=== PATIENT | female | born 1945 | race Hispanic/Latino ===

== ENCOUNTER → 2017-12-03 | Outpatient (CLI) | payer MEDICARE | END | disposition home or self-care (01) | LOC: RAH 09:45 | PROVIDERS: ATTEND Family Medicine | DX: G31.9 Degenerative disease of nervous system, unspecified (principal); I73.9 Peripheral vascular disease, unspecified; R42 Dizziness and giddiness | CPT/HCPCS: 70544; 70551 ==

== ENCOUNTER → 2018-05-13 | Outpatient (CLI) | payer MEDICARE | END | disposition home or self-care (01) | LOC: RAH 10:58 | PROVIDERS: ATTEND Internal Medicine Endocrinology, Diabetes & Metabolism | DX: E04.2 Nontoxic multinodular goiter (principal) | CPT/HCPCS: 76536 ==

== ENCOUNTER 2018-09-05 21:26 | Emergency (ER) | payer MEDICARE ==
[2018-09-05 22:15] LABS: BASOPHILS % (AUTO) 0.4 % (0.0-5.0); EOSINOPHILS % (AUTO) 0.7 % (0.0-8.0); HEMATOCRIT 36.2 % (36-48); LYMPHOCYTES % (AUTO) 29.8 % (21.0-51.0); MEAN CORPUSCULAR HEMOGLOBIN 30.4 pg (27.0-33.0); MEAN CORPUSCULAR VOLUME 89.4 fL (79-99); MONOCYTES % (AUTO) 8.9 % (3.0-13.0); NEUTROPHILS % (AUTO) 60.2 % (40.0-77.0); PLATELET COUNT (AUTO) 290 K/uL (130-400); RED BLOOD CELL COUNT(AUTO) 4.05 MIL/uL (4.00-5.50); RED CELL DISTRIBUTION WIDTH 13.5 % (11.0-15.5); WHITE BLOOD COUNT (AUTO) 9.8 K/uL (4.8-10.8)
[2018-09-05 22:18] LABS: CREATININE 0.7 mg/dL (0.5-1.5); POTASSIUM 3.4 mmol/L (3.5-5.1)
== END 2018-09-06 00:48 | disposition home or self-care (01) ==
LOC: EDH 21:26
DX: S80.212A Abrasion, left knee, initial encounter (principal); M25.532 Pain in left wrist; R42 Dizziness and giddiness; R11.0 Nausea; E78.5 Hyperlipidemia, unspecified; K21.9 Gastro-esophageal reflux disease without esophagitis; E03.9 Hypothyroidism, unspecified; M81.0 Age-related osteoporosis without current pathological fracture; M06.9 Rheumatoid arthritis, unspecified; Z90.710 Acquired absence of both cervix and uterus; Z90.49 Acquired absence of other specified parts of digestive tract; Z79.899 Other long term (current) drug therapy; W18.39XA Other fall on same level, initial encounter; Y93.K1 Activity, walking an animal; Y92.89 Other specified places as the place of occurrence of the external cause; Y99.8 Other external cause status
CPT/HCPCS: 29125; 36415; 70450; 73130; 80048; 85025; 93005

== ENCOUNTER → 2018-09-10 | Outpatient (CLI) | payer MEDICARE | END | disposition home or self-care (01) | LOC: RAH 11:51 | PROVIDERS: ATTEND Family Medicine | DX: M19.042 Primary osteoarthritis, left hand (principal); M19.032 Primary osteoarthritis, left wrist | CPT/HCPCS: 73110; 73130 ==

== ENCOUNTER → 2018-10-01 | Outpatient (CLI) | payer MEDICARE | END | disposition home or self-care (01) | LOC: RAH 09:38 | PROVIDERS: ATTEND Family Medicine | DX: K21.9 Gastro-esophageal reflux disease without esophagitis (principal); M06.9 Rheumatoid arthritis, unspecified | CPT/HCPCS: 74240 ==

== ENCOUNTER 2019-03-16 09:44 | Emergency (ER) | payer MEDICARE ==
[2019-03-16 10:03] LABS: BASOPHILS % (AUTO) 1.4 % (0.0-5.0); EOSINOPHILS % (AUTO) 1.4 % (0.0-8.0); HEMATOCRIT 36.4 % (36-48); LYMPHOCYTES % (AUTO) 27.7 % (21.0-51.0); MEAN CORPUSCULAR HEMOGLOBIN 31.2 pg (27.0-33.0); MEAN CORPUSCULAR HGB CONC 35.5 g/dL (32.0-36.0); MONOCYTES % (AUTO) 9.7 % (3.0-13.0); NEUTROPHILS % (AUTO) 59.8 % (40.0-77.0); PLATELET COUNT (AUTO) 252 K/uL (130-400); RED BLOOD CELL COUNT(AUTO) 4.14 MIL/uL (4.00-5.50); RED CELL DISTRIBUTION WIDTH 13.3 % (11.0-15.5); WHITE BLOOD COUNT (AUTO) 6.5 K/uL (4.8-10.8)
[2019-03-16 10:15] LABS: CREATININE 0.7 mg/dL (0.5-1.5); POTASSIUM 3.6 mmol/L (3.5-5.1)
[2019-03-16 10:19] LABS: ALBUMIN 3.7 g/dL (3.5-5.0); BILIRUBIN,TOTAL 0.5 mg/dL (0.2-1.0); TOTAL PROTEIN, SERUM 7.6 g/dL (6.0-8.3)
== END 2019-03-16 11:06 | disposition home or self-care (01) ==
LOC: EDH 09:44
DX: I10 Essential (primary) hypertension (principal); R55 Syncope and collapse; R42 Dizziness and giddiness; K21.9 Gastro-esophageal reflux disease without esophagitis; E03.9 Hypothyroidism, unspecified; E78.5 Hyperlipidemia, unspecified; M81.0 Age-related osteoporosis without current pathological fracture; M06.9 Rheumatoid arthritis, unspecified; Z90.710 Acquired absence of both cervix and uterus; Z90.49 Acquired absence of other specified parts of digestive tract
CPT/HCPCS: 36415; 80053; 84484; 85025; 93005

== ENCOUNTER → 2019-03-16 | Outpatient (CLI) | payer MEDICARE | END | disposition home or self-care (01) | LOC: RAH 08:27 | PROVIDERS: ATTEND Family Medicine | DX: Z12.31 Encounter for screening mammogram for malignant neoplasm of breast (principal); E03.9 Hypothyroidism, unspecified; E04.2 Nontoxic multinodular goiter | CPT/HCPCS: 76536; 77067; 82948 ==

== ENCOUNTER → 2021-11-08 | Outpatient (CLI) | payer MEDICARE ==
[2021-11-08] MEDS: REGADENOSON 0.4 MG/5 ML PF SYG IVP ONE (12:29)
== END | disposition home or self-care (01) ==
LOC: SHCH 07:43
PROVIDERS: ATTEND Internal Medicine Cardiovascular Disease
DX: I35.1 Nonrheumatic aortic (valve) insufficiency (principal); I51.7 Cardiomegaly; R06.02 Shortness of breath
CPT/HCPCS: 78452; 93017; 93306; 93356; 96374; A9500 ×2; J2785

== ENCOUNTER 2022-02-07 06:52 | Emergency (ER) | payer MEDICARE, OTHER ==
[~2022-02-07] VITALS: Ht 142.2 cm; Wt 61.2 kg
[2022-02-07 07:18] LABS: APPEARANCE,URINE SL CLOUDY (CLEAR); BILIRUBIN,URINE NEGATIVE (NEGATIVE); COLOR,URINE YELLOW (YELLOW); GLUCOSE, URINE (UA) NEGATIVE (NEGATIVE); KETONES,URINE NEGATIVE (NEGATIVE); LEUKOCYTE ESTERASE ,URINE SMALL (NEGATIVE); NITRATE,URINE NEGATIVE (NEGATIVE); OCCULT BLOOD,URINE LARGE (NEGATIVE); PROTEIN,URINE NEGATIVE (NEGATIVE); UROBILINOGEN,URINE 0.2 mg/dL (0.2-1.0)
[2022-02-07] MEDS ORDERED: ACETAMINOPHEN 500 MG TABLET PO ONE (07:30)
[2022-02-07 07:36] LABS: BASOPHILS % (AUTO) 0.1 % (0.0-5.0); EOSINOPHILS % (AUTO) 0.7 % (0.0-8.0); HEMATOCRIT 35.6 % (36-48); LYMPHOCYTES % (AUTO) 18.6 % (21.0-51.0); MEAN CORPUSCULAR HEMOGLOBIN 29.2 pg (27.0-33.0); MEAN CORPUSCULAR VOLUME 91.3 fL (79-99); MONOCYTES % (AUTO) 7.1 % (3.0-13.0); NEUTROPHILS % (AUTO) 73.2 % (40.0-77.0); PLATELET COUNT (AUTO) 274 K/uL (130-400); RED CELL DISTRIBUTION WIDTH 12.8 % (11.0-15.5)
[2022-02-07 07:44] LABS: CREATININE 0.7 mg/dL (0.5-1.5); POTASSIUM 4.6 mmol/L (3.5-5.1)
[2022-02-07 07:51] LABS: ALBUMIN 3.8 g/dL (3.5-5.0); BILIRUBIN,TOTAL 0.3 mg/dL (0.2-1.0); TOTAL PROTEIN, SERUM 7.6 g/dL (6.0-8.3)
[2022-02-07 08:05] LABS: BACTERIA,URINE Few /HPF (None Seen)
[2022-02-07] MEDS ORDERED: 0.9%NACL 1000ML 1,000 ML IV ONE (08:30)
[2022-02-07] MEDS ORDERED: IOHEXOL-350 75 ML VIAL IV ONE (09:53)
[2022-02-07] MEDS ORDERED: CEPH500B PO (10:59)
[2022-02-07] MEDS ORDERED: TAMS-1 PO (10:59)
[2022-02-07] MEDS ORDERED: KETO10TA2 PO (10:59)
[2022-02-07 11:37] VITALS: BP 135/74
== END 2022-02-07 11:39 | disposition home or self-care (01) ==
LOC: EDH 06:52
DX: N20.0 Calculus of kidney (principal); I10 Essential (primary) hypertension; Z90.49 Acquired absence of other specified parts of digestive tract; Z90.710 Acquired absence of both cervix and uterus
CPT/HCPCS: 36415; 74177; 80053; 81001; 85025; 99285; Q9967

== ENCOUNTER 2023-03-03 11:57 | Emergency (ER) | payer OTHER ==
[~2023-03-03] VITALS: Ht 142.2 cm; Wt 59.0 kg
[~2023-03-03 11:57] MED LIST: CEPH500B PO; KETO10TA2 PO; TAMS-1 PO
[2023-03-03 12:37] LABS: BASOPHILS % (AUTO) 0.3 % (0.0-5.0); EOSINOPHILS % (AUTO) 0.5 % (0.0-8.0); LYMPHOCYTES % (AUTO) 12.9 % (21.0-51.0); MEAN CORPUSCULAR HEMOGLOBIN 29.5 pg (27.0-33.0); MEAN CORPUSCULAR HGB CONC 32.2 g/dL (32.0-36.0); MEAN CORPUSCULAR VOLUME 91.6 fL (79-99); MONOCYTES % (AUTO) 7.8 % (3.0-13.0); NEUTROPHILS % (AUTO) 78.3 % (40.0-77.0); PLATELET COUNT (AUTO) 283 K/uL (130-400); RED BLOOD CELL COUNT(AUTO) 4.04 MIL/uL (4.00-5.50); RED CELL DISTRIBUTION WIDTH 12.7 % (11.0-15.5); WHITE BLOOD COUNT (AUTO) 9.9 K/uL (4.8-10.8)
[2023-03-03 12:55] LABS: APPEARANCE,URINE CLOUDY (CLEAR); BILIRUBIN,URINE NEGATIVE (NEGATIVE); COLOR,URINE YELLOW (YELLOW); GLUCOSE, URINE (UA) NEGATIVE (NEGATIVE); KETONES,URINE NEGATIVE (NEGATIVE); LEUKOCYTE ESTERASE ,URINE 25 Leu/uL (NEGATIVE); NITRATE,URINE NEGATIVE (NEGATIVE); OCCULT BLOOD,URINE NEGATIVE (NEGATIVE); PROTEIN,URINE 20 mg/dL (NEGATIVE); UROBILINOGEN,URINE 0.2 mg/dL (0.2-1.0)
[2023-03-03 13:00] LABS: BACTERIA,URINE RARE /HPF (None Seen); MUCUS,URINE RARE LPF (None Seen); SQUAMOUS EPITHELIAL CELL,UR MOD /HPF (0-2)
[2023-03-03 13:04] LABS: ALBUMIN 3.6 g/dL (3.5-5.0); CREATININE 0.9 mg/dL (0.5-1.5); POTASSIUM 4.4 mmol/L (3.5-5.1); TOTAL PROTEIN, SERUM 7.4 g/dL (6.0-8.3)
[2023-03-03] MEDS ORDERED: 0.9%NACL 1000ML 1,000 ML IV ONE (13:30)
[2023-03-03 15:37] VITALS: BP 155/58
== END 2023-03-03 16:06 | disposition home or self-care (01) ==
LOC: EDH 11:57
DX: R55 Syncope and collapse (principal); R00.1 Bradycardia, unspecified; I10 Essential (primary) hypertension; E78.00 Pure hypercholesterolemia, unspecified; E03.9 Hypothyroidism, unspecified; K21.9 Gastro-esophageal reflux disease without esophagitis; Z90.710 Acquired absence of both cervix and uterus
CPT/HCPCS: 99285; 96360; 71045; 84484; 80053; 83690; 85025; 81001; 36415; 93005; J7030

== ENCOUNTER → 2023-06-04 | Outpatient (CLI) | payer OTHER ==
[~2023-06-04] MED LIST changes: +IOHEXOL 350 MG/ML 100ML INFUS..BTL IV ONE
== END | disposition home or self-care (01) ==
LOC: RAH 13:15
PROVIDERS: ATTEND Internal Medicine Cardiovascular Disease
DX: I51.7 Cardiomegaly (principal); R07.9 Chest pain, unspecified; R55 Syncope and collapse; M47.815 Spondylosis without myelopathy or radiculopathy, thoracolumbar region
CPT/HCPCS: 75574; Q9967

== ENCOUNTER → 2023-07-09 | Outpatient (CLI) | payer OTHER ==
[~2023-07-09] MED LIST changes: -IOHEXOL 350 MG/ML 100ML INFUS..BTL IV ONE
== END | disposition home or self-care (01) ==
LOC: RAH 08:07
PROVIDERS: ATTEND Internal Medicine Cardiovascular Disease
DX: Z13.6 Encounter for screening for cardiovascular disorders (principal)
CPT/HCPCS: 75571

== ENCOUNTER → 2023-08-18 | Outpatient (CLI) | payer OTHER ==
[~2023-08-18] MED LIST changes: +AEC81 PO; +ATOR10TA69 PO; +BIOT5000 PO; +LEVO50CA4 PO; +LOSA25TA41 PO; +OMEP-420 PO
== END | disposition home or self-care (01) ==
LOC: SHCH 10:54
PROVIDERS: ATTEND Internal Medicine Cardiovascular Disease
DX: N20.0 Calculus of kidney (principal); I10 Essential (primary) hypertension; R55 Syncope and collapse
CPT/HCPCS: 93975

== ENCOUNTER → 2023-12-23 | Outpatient (CLI) | payer OTHER ==
[~2023-12-23] MED LIST changes: -CEPH500B PO; -KETO10TA2 PO; -TAMS-1 PO
== END | disposition home or self-care (01) ==
LOC: SHCH 09:34
PROVIDERS: ATTEND Internal Medicine Cardiovascular Disease
DX: I35.8 Other nonrheumatic aortic valve disorders (principal); I48.0 Paroxysmal atrial fibrillation; I51.7 Cardiomegaly; E78.5 Hyperlipidemia, unspecified
CPT/HCPCS: 93306

== ENCOUNTER 2024-06-02 19:01 | Emergency (ER) | payer OTHER ==
[2024-06-02] MEDS: 0.9%NACL 1000ML 1,000 ML IV ONE (19:59)
[2024-06-02 20:17] LABS: BASOPHILS # (AUTO) 0.02 K/uL (0.00-0.20); BASOPHILS % (AUTO) 0.3 % (0.0-5.0); EOSINOPHILS # (AUTO) 0.09 K/uL (0.00-0.70); EOSINOPHILS % (AUTO) 1.2 % (0.0-8.0); HEMATOCRIT 33.4 % (36-48); IMMATURE GRANULOCYTE ABSOLUTE 0.03 K/uL (0-1); LYMPHOCYTES # (AUTO) 1.9 K/uL (1.0-4.8); LYMPHOCYTES % (AUTO) 24.4 % (21.0-51.0); MEAN CORPUSCULAR HEMOGLOBIN 30.7 pg (27.0-33.0); MEAN CORPUSCULAR HGB CONC 33.2 g/dL (32.0-36.0); MEAN CORPUSCULAR VOLUME 92.5 fL (79-99); MONOCYTES # (AUTO) 0.7 K/uL (0.1-1.0); NEUTROPHILS % (AUTO) 64.7 % (40.0-77.0); PLATELET COUNT (AUTO) 265 K/uL (130-400); RED BLOOD CELL COUNT(AUTO) 3.61 MIL/uL (4.00-5.50); RED CELL DISTRIBUTION WIDTH 12.4 % (11.0-15.5); WHITE BLOOD COUNT (AUTO) 7.7 K/uL (4.8-10.8)
[2024-06-02 20:26] LABS: CREATININE 0.8 mg/dL (0.5-1.0)
[2024-06-02 20:30] LABS: ALBUMIN 3.6 g/dL (3.5-5.0); BILIRUBIN,TOTAL 0.3 mg/dL (0.2-1.0); TOTAL PROTEIN, SERUM 7.4 g/dL (6.0-8.3)
[2024-06-02 21:36] VITALS: BP 181/81; PULSE 58; RESP 16; O2SAT 100
== END 2024-06-02 22:31 | disposition home or self-care (01) ==
LOC: EDH 19:01
DX: R20.2 Paresthesia of skin (principal); R07.89 Other chest pain; I10 Essential (primary) hypertension; E03.9 Hypothyroidism, unspecified; E78.00 Pure hypercholesterolemia, unspecified; K21.9 Gastro-esophageal reflux disease without esophagitis; Z90.710 Acquired absence of both cervix and uterus; Z90.49 Acquired absence of other specified parts of digestive tract; Z79.82 Long term (current) use of aspirin; Z79.899 Other long term (current) drug therapy
CPT/HCPCS: 99285; 70450; 71045; 84484; 80053; 85025; 36415; 73562; 93005; J7030

== ENCOUNTER 2024-07-18 10:28 | Day surgery (SDC) | payer OTHER ==
[2024-07-15 10:42] VITALS: PULSE 48; RESP 18
[2024-07-15 10:43] LABS: BASOPHILS # (AUTO) 0.03 K/uL (0.00-0.20); BASOPHILS % (AUTO) 0.4 % (0.0-5.0); EOSINOPHILS # (AUTO) 0.07 K/uL (0.00-0.70); HEMATOCRIT 33.8 % (36-48); IMMATURE GRANULOCYTE ABSOLUTE 0.02 K/uL (0-1); LYMPHOCYTES # (AUTO) 1.5 K/uL (1.0-4.8); LYMPHOCYTES % (AUTO) 22.4 % (21.0-51.0); MEAN CORPUSCULAR HEMOGLOBIN 30.4 pg (27.0-33.0); MEAN CORPUSCULAR HGB CONC 33.1 g/dL (32.0-36.0); MEAN CORPUSCULAR VOLUME 91.8 fL (79-99); MONOCYTES # (AUTO) 0.7 K/uL (0.1-1.0); MONOCYTES % (AUTO) 10.6 % (3.0-13.0); NEUTROPHILS # (AUTO) 4.4 K/uL (1.8-7.7); NEUTROPHILS % (AUTO) 65.3 % (40.0-77.0); PLATELET COUNT (AUTO) 271 K/uL (130-400); RED BLOOD CELL COUNT(AUTO) 3.68 MIL/uL (4.00-5.50); RED CELL DISTRIBUTION WIDTH 12.6 % (11.0-15.5); WHITE BLOOD COUNT (AUTO) 6.7 K/uL (4.8-10.8)
[2024-07-15 11:11] LABS: CREATININE 0.8 mg/dL (0.5-1.0); POTASSIUM 4.6 mmol/L (3.5-5.1)
[2024-07-15 11:43] LABS: INR 1.03 (0.85-1.15); PROTHROMBIN TIME 11.1 SEC (9.6-11.6)
[2024-07-15 11:44] LABS: PARTIAL THROMBOPLASTIN TIME 29.4 SEC (26.3-35.5)
[2024-07-18] VITALS (12 sets, daily range): BP systolic 139–172; BP diastolic 43–68; PULSE 53–60; RESP 11–17
[~2024-07-18] VITALS: Ht 149.9 cm; Wt 63.9 kg
[~2024-07-18 10:28] MED LIST changes: -AEC81 PO; +APIX5TAB PO
[2024-07-18] MEDS ORDERED: LIDOCAINE HCL 1% MDV 50ML VIAL ONE (13:50)
[2024-07-18] MEDS ORDERED: IOHEXOL-350 50ML VIAL IV ONE (13:50)
[2024-07-18] MEDS ORDERED: ceFAZolin SODIUM 1 GM VIAL ONE ×2 (13:50→14:25)
[2024-07-18] MEDS ORDERED: BUPIvacaine/PF 0.25% 30ML VIAL IJ ONE (13:50)
[2024-07-18] MEDS ORDERED: MIDAZOLAM HCL 1 MG/ML 2ML VIAL ONE ×2 (14:21→14:34)
[2024-07-18] MEDS ORDERED: MEPERIDINE-PF 25 MG/ML SYG ONE ×2 (14:21→14:34)
[2024-07-18] MEDS ORDERED: ONDANSETRON 4MG INJ IV PRN (15:30)
[2024-07-18] MEDS ORDERED: acetaMINOPHEN WITH coDEINE 1 TAB TAB PO PRN ×2 (15:30)
[2024-07-18] MEDS: ceFAZolin SODIUM 1 GM VIAL IVPB ONE (19:52)
== END 2024-07-18 20:52 | disposition home or self-care (01) ==
LOC: DAH 10:28
PROVIDERS: ATTEND Internal Medicine Cardiovascular Disease
DX: I49.5 Sick sinus syndrome (principal); M19.90 Unspecified osteoarthritis, unspecified site; I48.91 Unspecified atrial fibrillation; E78.5 Hyperlipidemia, unspecified; E03.9 Hypothyroidism, unspecified; Z90.49 Acquired absence of other specified parts of digestive tract; Z90.710 Acquired absence of both cervix and uterus; Z79.01 Long term (current) use of anticoagulants; Z79.899 Other long term (current) drug therapy; Z80.0 Family history of malignant neoplasm of digestive organs; Z98.890 Other specified postprocedural states
CPT/HCPCS: 80048; 85025; 85610; 85730; 36415; 93005; 33208; 71045; C1769; C1785; C1898 ×2; C1894; J0690 ×3; J0665; J2250 ×2; J2175 ×2; J3490; Q9967; A4215; A4222; A4221; A4663; A4216; A4606; A4223 ×3; 99156; 99157

== ENCOUNTER → 2024-12-17 | Outpatient (CLI) | payer OTHER ==
--- NOTE | 2024-12-21 07:20 | HMCSR ---
APPROVED REPORT EXAM: Two-dimensional and M-mode echocardiogram with Doppler and color Doppler. INDICATION ICD: I25.10 Atherosclerotic heart disease of [place] coronary artery without angina pectoris 2D Dimensions RVDd3.3 cmLVEF(%)60.6 (>50%)LVED Vol(simp.)84.0 mL IVSd1.1 (0.7-1.1cm)FS(%)32 %LVES Vol(simp.)33.0 mL LVDd4.6 (3.8-5.6cm)Ao Root(2D)3.0 (2.0-3.7cm)LVEF(%, simp.)61 % PWd1.1 (0.7-1.1cm)LVOT diam1.9 (1.8-2.4cm)LA ESV INDEX (BP)41.47 mL/m2 LVDs3.1 (2.5-4.0cm)IVC diam1.8 cm Aortic Valve AoV Vmax1.6 m/Cynthia Peak GR10.3 mmHgLVOT Vmax1.0 m/s AoV VTI0.4 mAo Mean GR5.3 mmHgLVOT VTI0.28 m CARLOS (VMAX)1.8 cm2Al P1/2T618 msAVA (VTI) 1.8 cm2 Mitral Valve MV E Vmax71.6 cm/sDECEL Mvhe610 ms MV A Mzri678.2 cm/sP 1/2 T64 ms E/A ratio0.7MVA (PHT)3.4 cm2 MR Max PG40 mmHg TDI E/E' Riqcua04.3E/E' Lateral9.8 Pulmonary Valve PV Vmax0.8 m/sPV VTI0.22 mPV Mean GR1 mmHg PV Peak GR2.7 mmHgPI End Jennifer. Varinder 1.0 cm/s Tricuspid Valve TR Vmax2.3 m/sRAP (EST) 8 rnLdNWXF60.4 mmHg TR Peak GR20.4 mmHg Left Ventricle Left ventricular cavity size is normal. There is normal LV segmental wall motion. There is borderline to mild concentric left ventricular hypertrophy. LVEF is 60-65%. No left ventricle thrombus noted on this study. Grade 1 diastolic dysfunction Right Ventricle The right ventricle is normal size. The right ventricular systolic function is normal. Atria The left atrium is mildly to moderately dilated. The right atrium is mildly dilated. Aortic Valve Aortic valve may be functionally bicuspid. Aortic valve leaflets are sclerotic but open well. Mild ao rtic regurgitation. There is no aortic valvular stenosis. Mitral Valve Mitral valve leaflets are mildly sclerotic but open well. Mitral regurgitation is trace. There is no mitral valve stenosis. Tricuspid Valve The tricuspid valve leaflets appear normal. There is trace tricuspid regurgitation. Pulmonic Valve Pulmonic valve is not well visualized. There is mild valvular regurgitation. Great Vessels The aortic root is normal in size. IVC is dilated and collapses >50% with inspiration. Pericardium No pericardial effusion. Conclusion Left ventricular cavity size is normal. There is borderline to mild concentric left ventricular hypertrophy. LVEF is 60-65%. Grade 1 diastolic dysfunction The right ventricle is normal size. The left atrium is mildly to moderately dilated. The right atrium is mildly dilated. Aortic valve may be functionally bicuspid. Aortic valve leaflets are sclerotic but open well. Mild aortic regurgitation. Mitral valve leaflets are mildly sclerotic but open well. Mitral regurgitation is trace. There is trace tricuspid regurgitation. There is mild valvular regurgitation. The aortic root is normal in size. IVC is dilated and collapses >50% with inspiration. No pericardial effusion.
== END | disposition home or self-care (01) ==
LOC: SHCH 07:59
PROVIDERS: ATTEND Internal Medicine Cardiovascular Disease
DX: I08.8 Other rheumatic multiple valve diseases (principal); R06.00 Dyspnea, unspecified; I25.10 Atherosclerotic heart disease of native coronary artery without angina pectoris
CPT/HCPCS: 93306

== ENCOUNTER → 2024-12-29 | Outpatient (CLI) | payer OTHER ==
[2024-12-29] MEDS: REGADENOSON 0.4 MG/5 ML PF SYG IVP ONE (13:14)
--- NOTE | 2025-01-02 10:40 | HMCSR ---
APPROVED REPORT Height: 5 ft 6in Weight: 142 lbs TEST INDICATIONS CAD The imaging protocol used to acquire images was Rest Tc-99m/stress Tc-99m 1 day Consent: The procedure was explained and understood by the patient. Informerd consent was witnessed Cecilia CONRAD RN First, low dose rest was performed then high dose stress. RESTING DATA: The resting ekg shows: NSR Rest SPECT myocardial perfusion imaging was performed in supine position 63 minutes following the int ravenous injection of 12.0 mCi of Tc-99 Sestamibi. Time of rest injection: 09:27: Date: 12/29/2024 Time of rest imagin:30: Date: 12/29/2024 PHARMACOLOGIC STRESS: Pharmacologic stress test was performed by injecting regadenoson 0.4 mg IV push followed by the intra venous injection of 32.0 mCi of Tc-99 Sestamibi. Time of stress injection: 10:55: Date: 12/29/2024 Time of stress imagin:12: Date: 12/29/2024 Heart Rate at time of stress injection: 61 bpm. Gated Stress SPECT was performed 77 minutes after stress injection. The images were gated to evaluate regional wall motion and calculate left ventricular ejection fracti on. STRESS DETAILS Reason for Termination: Infusion complete Stress Symptoms: No chest pain or symptoms Max HR Achieved: 80 bpm % of APMHR Achieved: 57 Max Blood Pressure: 145/55 mmHg Stress ECG: NSR LEFT VENTRICLE Size: The left ventricular size is normal. Systolic Function:The left ventricular systolic function is normal. Wall Motion: No regional wall motion abnormalities noted. The left ventricular ejection fraction was calculated to be 73%.TID = . LV PERFUSION The rest and stress images show normal perfusion. Conclusion The left ventricular size is normal. The left ventricular systolic function is normal. No regional wall motion abnormalities noted. The rest and stress images show normal perfusion. The left ventricular ejection fraction was calculated to be 73%.
== END | disposition home or self-care (01) ==
LOC: SHCH 09:06
PROVIDERS: ATTEND Internal Medicine Cardiovascular Disease
DX: I25.10 Atherosclerotic heart disease of native coronary artery without angina pectoris (principal)
CPT/HCPCS: 78452; 93017; J2785; A9500 ×2

== ENCOUNTER 2025-10-06 07:32 | Day surgery (SDC) | payer OTHER ==
[2025-10-04 11:30] LABS: IMMATURE GRANULOCYTE ABSOLUTE 0.02 K/uL (0-1); NUCLEATED RED BLOOD CELLS 0.0 % (0.0-0.19); PLATELET COUNT (AUTO) 277 K/uL (130-400); RED BLOOD CELL COUNT(AUTO) 3.85 MIL/uL (4.00-5.50); RED CELL DISTRIBUTION WIDTH 12.5 % (11.0-15.5); WHITE BLOOD COUNT (AUTO) 6.7 K/uL (4.8-10.8)
[2025-10-04 11:39] LABS: CREATININE 0.7 mg/dL (0.5-1.0); GLOMERULAR FILTR. RATE CALC 87.0 mL/min (>90); GLUCOSE,RANDOM 100.0 mg/dL (70-105); SODIUM SERUM 142.0 mmol/L (136-145); UREA NITROGEN, BLOOD 11.0 mg/dL (7-18)
--- NOTE | 2025-10-04 11:40 | EKG ---
[facility] Test Date: 2025-10-04 Test Time: 11:53:21 Pat Name: PENNY JACKSON Department: [facility] Room: Gender: F Rf Engineer: [id number] : 1945 Requested By: Mei LEE Order Number: [id number] Reading MD: Anum Childers Measurements Intervals [place] Rate: 63 P: 0 WI: 213 QRS: -21 QRSD: 89 T: -8 QT: 413 QTc: 424 Interpretive Statements Atrial-paced complexes Borderline prolonged WI interval Borderline T abnormalities, diffuse leads Compared to ECG 07/15/2024 10:28:15 Sinus bradycardia no longer present T-wave abnormality still present Electronically Signed On 10-05-2025 12:32:42 EDUCATION DEPARTMENT REGISTRAR by Anum Childers Please click the below link to view image of tracing.
[2025-10-04 11:43] VITALS: BP 156/71; PULSE 78; RESP 16; TEMP 97.3
[2025-10-04 11:45] LABS: INR 0.99 (0.85-1.15)
[~2025-10-06] VITALS: Ht 149.9 cm; Wt 61.6 kg
[~2025-10-06 07:32] MED LIST changes: +AEC81 PO; -ATOR10TA69 PO; +ATOR20TA65 PO; -LEVO50CA4 PO; +LEVO50CA5 PO
[2025-10-06 07:36] VITALS: BP 155/83; PULSE 88; RESP 16; TEMP 97.3
[2025-10-06] MEDS: 0.9%NACL 1000ML 1,000 ML IV SCH (08:07)
[2025-10-06] MEDS ORDERED: LIDOCAINE HCL 400MG/20ML VIAL ONE (09:19)
[2025-10-06] MEDS ORDERED: LIDOCAINE HCL 1% MDV 50ML VIAL ONE (09:20)
[2025-10-06] MEDS ORDERED: MIDAZOLAM HCL 1 MG/ML 2ML VIAL ONE ×2 (09:36→09:49)
[2025-10-06] MEDS ORDERED: BACITRACIN 1 EACH PACKET TP ONE (10:04)
[2025-10-06 10:26] VITALS: BP 159/65; PULSE 62; RESP 11; TEMP 97.6
--- NOTE | 2025-10-06 10:26 | NUR ---
DRESSING MIDDLE CHEST. 4X4 TEGADERM AND 4X4 NON ADHERENT STERILE DRESSING TO CHEST. NO ACTIVE BLEEDING OR DRAINAGE NOTED. NO REDNESS OR SWELLING NOTED. DRESSING SOFT TO TOUCH.
[2025-10-06 10:41] VITALS: BP 147/52; PULSE 60; RESP 12
--- NOTE | 2025-10-06 10:41 | NUR ---
DRESSING DRESSING TO MIDDLE CHEST. 4X4 STERILE TEGADERM AND 4X4 STERILE NON ADHERENT PAD. NO ACTIVE BLEEDING OR DRAINAGE NOTED. NO REDNESS OR SWELLING NOTED. DRESSING SOFT TO TOUCH.
[2025-10-06 10:56] VITALS: BP 153/63; PULSE 66; RESP 14
[2025-10-06] MEDS ORDERED: 0.9%NACL 10ML VIAL IVP SCH (11:00)
[2025-10-06 11:11] VITALS: BP 153/63; PULSE 64; RESP 10
[2025-10-06 11:17] VITALS: BP 158/63; PULSE 62; RESP 13
--- NOTE | 2025-10-06 11:23 | CCATH ---
PROCEDURE NOTE PROCEDURES: * Cardiac fluoroscopy. * Conscious sedation. * Explant of an implantable loop recorder. INDICATIONS: * Conduction system disease. * Paroxysmal atrial fibrillation. * JACK parameters for the implantable loop recorder. COMPLICATIONS: None. TOTAL CONTRAST: 0 mL. ANESTHESIA: Local anesthesia infiltration with 2% Xylocaine without epinephrine and conscious sedation. DESCRIPTION OF PROCEDURE: The patient was taken to the cardiac catheterization lab after appropriate operative consents were signed. As per request, she requested removal of the implantable loop recorder after the device for pacing has been implanted. The patient was prepped and draped in the usual fashion. After conscious sedation was administered, the area of the implantable loop recorder was palpated carefully. 2% Xylocaine without epinephrine was administered. A small incision measuring 1 cm was made in the lower aspect of the prior pocket. With the blunt dissection, the device was found and retracted with tonsil hemostats. The pocket was closed with 2-0 Prolene sutures and prepped and dressed with antibiotic ointment. The patient tolerated the procedure well and left the catheterization lab in stable condition. TID: [id number] RECEIPT: [id number]
== END 2025-10-06 11:18 | disposition home or self-care (01) ==
LOC: DAH 07:32
PROVIDERS: ATTEND Internal Medicine Cardiovascular Disease
DX: Z45.09 Encounter for adjustment and management of other cardiac device (principal); I48.0 Paroxysmal atrial fibrillation; I44.0 Atrioventricular block, first degree; M19.90 Unspecified osteoarthritis, unspecified site; I49.5 Sick sinus syndrome; Z88.6 Allergy status to analgesic agent; I10 Essential (primary) hypertension; E03.9 Hypothyroidism, unspecified; E78.5 Hyperlipidemia, unspecified; G47.33 Obstructive sleep apnea (adult) (pediatric); Z79.01 Long term (current) use of anticoagulants; K21.9 Gastro-esophageal reflux disease without esophagitis; Z79.82 Long term (current) use of aspirin; Z79.899 Other long term (current) drug therapy; Z90.49 Acquired absence of other specified parts of digestive tract; Z90.710 Acquired absence of both cervix and uterus; Z98.890 Other specified postprocedural states
CPT/HCPCS: 80048; 85025; 85610; 85730; 36415; 93005; 33286; 99156; 99157 ×2; A4649; J3010; J7030; J0665; J2250 ×2; J3490; A4215 ×2; A4222; A4221; A4663; A4216; A4606; A4223 ×3